=== PATIENT | female | born 1950 ===

== ENCOUNTER 2018-07-11 21:25 | Inpatient (IN) | payer BC, OTHER ==
[~2018-07-11] VITALS: Ht 170.2 cm; Wt 61.7 kg
--- NOTE | 2018-07-11 21:40 | NUR ---
Pt bib private ambulance from [facility] for medical clearance and admission to MHU. Pt on 5150 hold - Gravely Disabled. Per report, pt has been refusing meds x 3 days, has become more irritable. Pt is alert, & oriented to name & . Pt is calm & cooperative at this time. Sitter at bedside for safety measures. No acute distress noted. Pending MHU admission.
[2018-07-11 21:56] LABS: BASOPHILS # (AUTO) 0.1 K/uL (0.0-8.0); BASOPHILS % (AUTO) 0.7 % (0.0-2.0); EOSINOPHILS % (AUTO) 0.2 % (0.0-7.0); HEMOGLOBIN 13.3 g/dL (10.9-14.3); LYMPHOCYTES # (AUTO) 2.5 K/uL (20.0-40.0); LYMPHOCYTES % (AUTO) 30.5 % (20.5-51.5); MEAN CORPUSCULAR HEMOGLOBIN 30.9 uug (24.7-32.8); MEAN CORPUSCULAR HGB CONC 34 g/dL (32.3-35.6); MEAN CORPUSCULAR VOLUME 90.1 fL (75.5-95.3); MONOCYTES % (AUTO) 11.9 % (0.0-11.0); NEUTROPHILS # (AUTO) 4.6 K/uL (1.8-8.9); NEUTROPHILS % (AUTO) 56.7 % (38.5-71.5); PLATELET COUNT (AUTO) 237 K/uL (179-408); RED BLOOD CELL COUNT(AUTO) 4.32 MIL/uL (3.63-4.92); WHITE BLOOD COUNT (AUTO) 8.2 K/uL (3.8-11.8)
[2018-07-11 22:03] LABS: CARBON DIOXIDE 27 mmol/L (21-32); CHLORIDE 90 mmol/L (98-107); CREATININE 0.7 mg/dL (0.6-1.3); GLUCOSE 106 mg/dL (74-106); POTASSIUM 3.1 mmol/L (3.5-5.1); UREA NITROGEN, BLOOD 15 mg/dL (7-18)
[2018-07-11 22:10] LABS: ETHANOL < 3 MG/DL (0-0)
[2018-07-11 22:13] LABS: ALANINE AMINOTRANSFERASE 16 U/L (14-59); ALKALINE PHOSPHATASE 110 U/L (50-136); ASPARTATE AMINOTRANSFERASE 14 U/L (15-37); BILIRUBIN,DIRECT 0.4 mg/dL (0.0-0.2); BILIRUBIN,TOTAL 1.3 mg/dL (0.2-1.0); TOTAL PROTEIN, SERUM 7.2 g/dL (6.4-8.2)
[2018-07-11 22:14] LABS: ACETAMINOPHEN < 2.0 ug/mL (10-30)
[2018-07-11] MEDS ORDERED: AMLO5TAB9 PO (22:14)
[2018-07-11] MEDS ORDERED: ONDA4TAB11 PO (22:14)
[2018-07-11] MEDS ORDERED: PANT40TA4 PO (22:14)
[2018-07-11] MEDS ORDERED: METO25TA6 PO (22:14)
[2018-07-11] MEDS ORDERED: SERT25TA PO (22:14)
[2018-07-11] MEDS ORDERED: LACT10SO PO (22:14)
[2018-07-11] MEDS ORDERED: LEVE500T20 PO (22:14)
[2018-07-11] MEDS ORDERED: THIA100T88 PO (22:14)
[2018-07-11] MEDS ORDERED: IV NORMAL SALINE 1000 ML BAG IV ONE (22:15)
[2018-07-11 22:22] LABS: *BILIRUBIN,URIN NEGATIVE (NEGATIVE); *BLOOD, URINE NEGATIVE (NEGATIVE); *CLARITY,URINE CLEAR (CLEAR); *COLOR,URINE YELLOW (YELLOW); *KETONES,URINE NEGATIVE (NEGATIVE); *UROBILINOGEN,URINE 0.2 E.U./dl (NORMAL); LEUKOCYTE ESTERASE ,URINE NEGATIVE (NEGATIVE); NITRITE, URINE NEGATIVE (NEGATIVE); PH,URINE 6.5 (5.0-8.0); UGLUCOSE NEGATIVE (NEGATIVE)
[2018-07-11 22:34] LABS: MUCUS,URINE FEW /LPF (0-FEW); RBC,URINE 0-3 /HPF (0-3); SQUAMOUS EPITHELIAL CELL,UR FEW /HPF (NONE SEEN)
[2018-07-11 22:39] LABS: *AMPHETAMINE, URINE NEGATIVE (NEGATIVE); *BARBITURATE, URINE NEGATIVE (NEGATIVE); *CANNABINOID, URINE POSITIVE (NEGATIVE); *COCCAINE, URINE NEGATIVE (NEGATIVE); *OPIATE, URINE NEGATIVE (NEGATIVE); *PHENCYCLIDINE SCREEN,URINE NEGATIVE (NEGATIVE)
--- NOTE | 2018-07-11 22:50 | NUR ---
Pt is medically cleared by MAIKOL Mistry MD. Pt IV fluids infusing then admission to MHU.
--- NOTE | 2018-07-11 23:12 | NUR ---
IV removed. Catheter intact and site benign. Pressure and 4x4 gauze applied to site. No bleeding noted.
[2018-07-11] MEDS ORDERED: POTASSIUM CHLORIDE 20 MEQ TAB.PRT.SR ONE (23:22)
--- NOTE | 2018-07-11 23:28 | NUR ---
Pt. admitted to MHU , under care of Dr. Blackwood/Regan Bustos, COAL GETTER 7604 Hold GD. Belongs List completed. MRSA swab done.
[2018-07-11] MEDS ORDERED: POTASSIUM CHLORIDE 20 MEQ TAB.PRT.SR PO ONE (23:30)
[2018-07-11] MEDS ORDERED: ACETAMINOPHEN 325 MG TABLET PO PRN (23:30)
[2018-07-11] MEDS ORDERED: TEMAZEPAM 7.5 MG CAPSULE PO PRN (23:30)
[2018-07-11] MEDS ORDERED: LORAZEPAM 0.5 MG TABLET PO PRN (23:30)
[2018-07-11] MEDS ORDERED: MAG HYDROX/AL HYDROX/SIMETH 30 ML LIQUID UDC PO PRN (23:30)
[2018-07-11] MEDS ORDERED: MAGNESIUM HYDROXIDE 30 ML LIQUID UDC PO PRN (23:30)
[2018-07-11 23:40] VITALS: BP 139/75
[2018-07-12] MEDS ORDERED: ALBUTEROL SULFATE 2.5 MG/3 ML NEBU NEB PRN (01:45)
--- NOTE | 2018-07-12 03:24 | NUR ---
Admission Notes: Admitted this 73 y.o. female, brought to MHU from ER via gurney, accompanied by staff, arrived @ 2335. Pt is on a 5150 hold for Grave Disability. According to the hold, "Patient has been refusing medications, refusing care, and refusing hygiene at her facility, and was found passed out by staff in her room with 6 empty bottles of wine." Pt was placed on 5150 hold upon evaluation, and brought to [facility]. RN concurs with the hold. Advisement and patient rights handbook given. Upon face to face assessment, pt presented with appropriate affect and was joking around with staff. Pt is A/O x 3, denies SI/HI/AH/VH, but minimizing condition. Pt reports not knowing how she got to the hospital, and denies any of the information written on the hold. Pt denies any alcohol abuse, admits to drinking "here and there", and smoking marijuana. Pt denies feeling depressed or any psychiatric history. Pt seems to be forgetful at times, states that she does not know the name of the facility she lives in. Pt also denies seeing a psychiatrist, even though Intake report shows she is a patient of Dr. Blackwood, one of the psychiatrists at this hospital. Dr. Self and Dr. Sheppard have both been notified of admission, orders received. Pt safety check and search done, skin is intact with a few rashes noted, pictures have been taken and placed on chart. Pt has been educated and oriented to unit and rules. Pt respectfully declined to sign admission forms due to being sleepy, but verbalized understanding and agreement of admission. Emphasized safety, bed at lowest position with wheels locked and side rails up x 2.
[2018-07-12 07:30] VITALS: BP 136/68
[2018-07-12] MEDS: THIAMINE HCL 100 MG TABLET PO SCH ×2 (08:57→09:59)
[2018-07-12] MEDS ORDERED: Medication Not On Formulary EA (Lactulose (Duphalac) 10 GM) PO SCH (09:00)
[2018-07-12] MEDS: LACTULOSE 20 G/30 ML LIQUID UDC PO SCH (09:00)
[2018-07-12] MEDS: PANTOPRAZOLE SODIUM 40 MG TABLET.DR PO SCH (09:00)
[2018-07-12] MEDS: LEVETIRACETAM 500 MG TABLET PO SCH (09:57)
[2018-07-12] MEDS: METOPROLOL TARTRATE 25 MG TABLET PO SCH ×2 (09:57→20:29)
[2018-07-12] MEDS: AMLODIPINE 5 MG TABLET PO SCH (09:59)
--- NOTE | 2018-07-12 15:58 | NUR ---
Initial Discharge Instructions: Patient is a current resident of [facility] [[address] [place] [address]; [phone]]. Per pt, she could not remember where she lived until this junior copywriter stated it. Patient reports she would like to return there. Spoke with pt's friend, Kylie Alexa ([phone]) who is able to be involved in treatment planning. SW attempted to contact Bid Manager, Afshan, at [facility] and had to leave a message for a return call. SW will continue to follow-up. ACACIA will continue to collaborate with pt, support system, and MD regarding most appropriate discharge plans. SW will form a safe and proper discharge.
[2018-07-12 16:00] VITALS: BP 108/60
--- NOTE | 2018-07-12 16:28 | NUR ---
UR Note: ACACIA faxed daily clinicals to [facility] Title Insurance Agent, Tri [ph. [phone]; fax [phone]]. Awaiting further authorization. ACACIA will continue to follow-up.
[2018-07-12 20:05] VITALS: BP 115/69
[2018-07-12] MEDS: DIVALPROEX 250 MG TABLET.DR PO SCH (20:28)
[2018-07-12] MEDS: CLOTRIMAZOLE/BETAMET DIPROP CREAM 15 GM TUBE TOP SCH (20:28)
[2018-07-12] MEDS: SERTRALINE HCL 50 MG TABLET PO SCH (20:29)
--- NOTE | 2018-07-12 20:48 | NUR ---
Received pt resting and watching TV in the dining area. AAO x2. No acute distress noted. Denies pain or discomfort. Denies S/I. Ambulatory. Meds given as ordered. Pt needs prompting when taking meds. Safety measures maintained. Will continue to monitor.
[2018-07-13] MEDS: PANTOPRAZOLE SODIUM 40 MG TABLET.DR PO SCH (06:07)
[2018-07-13 07:05] LABS: BASOPHILS % (AUTO) 0.6 % (0.0-2.0); EOSINOPHILS % (AUTO) 0.3 % (0.0-7.0); HEMATOCRIT 38.9 % (31.2-41.9); HEMOGLOBIN 13.2 g/dL (10.9-14.3); LYMPHOCYTES % (AUTO) 32.1 % (20.5-51.5); MEAN CORPUSCULAR HEMOGLOBIN 30.8 uug (24.7-32.8); MEAN CORPUSCULAR HGB CONC 34 g/dL (32.3-35.6); MEAN CORPUSCULAR VOLUME 90.7 fL (75.5-95.3); MONOCYTES # (AUTO) 0.8 K/uL (2.0-10.0); MONOCYTES % (AUTO) 12.1 % (0.0-11.0); NEUTROPHILS # (AUTO) 3.5 K/uL (1.8-8.9); NEUTROPHILS % (AUTO) 54.9 % (38.5-71.5); PLATELET COUNT (AUTO) 200 K/uL (179-408); RED BLOOD CELL COUNT(AUTO) 4.29 MIL/uL (3.63-4.92); WHITE BLOOD COUNT (AUTO) 6.4 K/uL (3.8-11.8)
[2018-07-13 07:12] LABS: CREATININE 0.5 mg/dL (0.6-1.3); MAGNESIUM 1.6 mg/dL (1.8-2.4); PHOSPHOROUS 3.5 mg/dL (2.5-4.9); POTASSIUM 3.4 mmol/L (3.5-5.1)
[2018-07-13 07:30] VITALS: BP 123/68
[2018-07-13] MEDS: LEVETIRACETAM 500 MG TABLET PO SCH (08:39)
[2018-07-13] MEDS: THIAMINE HCL 100 MG TABLET PO SCH ×2 (08:39→16:07)
[2018-07-13] MEDS: DIVALPROEX 250 MG TABLET.DR PO SCH ×2 (08:39→20:01)
[2018-07-13] MEDS: METOPROLOL TARTRATE 25 MG TABLET PO SCH ×2 (08:39→20:02)
[2018-07-13] MEDS: LACTULOSE 20 G/30 ML LIQUID UDC PO SCH (08:40)
[2018-07-13] MEDS: CLOTRIMAZOLE/BETAMET DIPROP CREAM 15 GM TUBE TOP SCH ×2 (08:40→20:02)
[2018-07-13] MEDS: AMLODIPINE 5 MG TABLET PO SCH (08:40)
--- NOTE | 2018-07-13 11:01 | NUR ---
UR Note: ACACIA faxed daily clinicals to [facility] Adult Neurologist, Tri [ph. [phone]; fax [phone]]. Awaiting further authorization. ACACIA will continue to follow-up.
[2018-07-13] MEDS ORDERED: MAGNESIUM OXIDE 400 MG TABLET PO ONE (14:45)
[2018-07-13] MEDS ORDERED: POTASSIUM CHLORIDE 20 MEQ TAB.PRT.SR PO ONE (14:45)
[2018-07-13 15:00] VITALS: BP 130/72
--- NOTE | 2018-07-13 16:49 | NUR ---
SCREAMING AND YELLING AT STAFF BECAUSE SHE CANNOT CLOSE HER DOOR TO HER ROOM. DISRESPECTFUL AND VERBALLY ABUSIVE TO THE NURSES
[2018-07-13] MEDS: SERTRALINE HCL 50 MG TABLET PO SCH (20:01)
[2018-07-13 20:11] VITALS: BP 125/72
[2018-07-14] MEDS: PANTOPRAZOLE SODIUM 40 MG TABLET.DR PO SCH (06:11)
--- NOTE | 2018-07-14 06:53 | NUR ---
GPS: Remain calm and cooperative with medications and care. slept 7 hrs through the night. resting in bed comfortably. no agitation noted. continue plan of care.
[2018-07-14 07:30] VITALS: BP 133/70
[2018-07-14 08:00] VITALS: BP 106/65
[2018-07-14] MEDS: THIAMINE HCL 100 MG TABLET PO SCH ×2 (08:56→16:55)
[2018-07-14] MEDS: DIVALPROEX 250 MG TABLET.DR PO SCH ×2 (08:56→20:04)
[2018-07-14] MEDS: LEVETIRACETAM 500 MG TABLET PO SCH (08:56)
[2018-07-14] MEDS: LACTULOSE 20 G/30 ML LIQUID UDC PO SCH (08:56)
[2018-07-14] MEDS: AMLODIPINE 5 MG TABLET PO SCH (08:57)
[2018-07-14] MEDS: METOPROLOL TARTRATE 25 MG TABLET PO SCH ×2 (08:57→20:11)
[2018-07-14] MEDS: CLOTRIMAZOLE/BETAMET DIPROP CREAM 15 GM TUBE TOP SCH ×2 (08:57→20:13)
[2018-07-14 16:37] VITALS: BP 102/50
[2018-07-14 20:00] VITALS: BP 106/65
[2018-07-14] MEDS: SERTRALINE HCL 50 MG TABLET PO SCH (20:04)
[2018-07-15] MEDS: PANTOPRAZOLE SODIUM 40 MG TABLET.DR PO SCH (06:04)
--- NOTE | 2018-07-15 06:12 | NUR ---
GPS: Remain calm and cooperative with medication and care. no agressive behavior noted at this time resting in bed comfortably. slept 7:30 hrs through the night. continue plan of care.
[2018-07-15 07:30] VITALS: BP 132/73
[2018-07-15] MEDS: DIVALPROEX 250 MG TABLET.DR PO SCH ×2 (08:43→20:09)
[2018-07-15] MEDS: LEVETIRACETAM 500 MG TABLET PO SCH (08:43)
[2018-07-15] MEDS: THIAMINE HCL 100 MG TABLET PO SCH ×2 (08:44→16:55)
[2018-07-15] MEDS: METOPROLOL TARTRATE 25 MG TABLET PO SCH ×2 (08:44→20:09)
[2018-07-15] MEDS: AMLODIPINE 5 MG TABLET PO SCH (08:44)
[2018-07-15] MEDS: LACTULOSE 20 G/30 ML LIQUID UDC PO SCH (08:44)
[2018-07-15] MEDS: CLOTRIMAZOLE/BETAMET DIPROP CREAM 15 GM TUBE TOP SCH ×2 (08:45→20:10)
[2018-07-15 16:28] VITALS: BP 95/59
[2018-07-15 19:59] VITALS: BP 103/63
[2018-07-15] MEDS: SERTRALINE HCL 50 MG TABLET PO SCH (20:09)
[2018-07-16] MEDS: PANTOPRAZOLE SODIUM 40 MG TABLET.DR PO SCH (06:02)
--- NOTE | 2018-07-16 06:22 | NUR ---
PT SLEPT 7.30 HOURS. PT SHOWS NO ACUTE DISTRESS. PRESCRIBED MEDICATION GIVEN AND PT TOLERATED IT WELL. PT CALM AND COOPERATIVE WITH CARE. SAFETY AND COMFORT PROVIDED. ALL NEEDS ARE MET. WILL ENDORSE ACCORDINGLY TO INCOMING NURSE FOR CONTINUITY OF CARE.
[2018-07-16 07:11] LABS: BASOPHILS % (AUTO) 0.6 % (0.0-2.0); EOSINOPHILS % (AUTO) 0.4 % (0.0-7.0); HEMATOCRIT 38.3 % (31.2-41.9); LYMPHOCYTES # (AUTO) 1.7 K/uL (20.0-40.0); LYMPHOCYTES % (AUTO) 37.4 % (20.5-51.5); MEAN CORPUSCULAR HEMOGLOBIN 30.8 uug (24.7-32.8); MEAN CORPUSCULAR HGB CONC 34 g/dL (32.3-35.6); MEAN CORPUSCULAR VOLUME 90.7 fL (75.5-95.3); MONOCYTES # (AUTO) 0.6 K/uL (2.0-10.0); MONOCYTES % (AUTO) 14.2 % (0.0-11.0); NEUTROPHILS # (AUTO) 2.1 K/uL (1.8-8.9); NEUTROPHILS % (AUTO) 47.4 % (38.5-71.5); PLATELET COUNT (AUTO) 216 K/uL (179-408); RED BLOOD CELL COUNT(AUTO) 4.22 MIL/uL (3.63-4.92); WHITE BLOOD COUNT (AUTO) 4.5 K/uL (3.8-11.8)
[2018-07-16 07:30] VITALS: BP 128/69
[2018-07-16 07:30] LABS: CREATININE 0.5 mg/dL (0.6-1.3); MAGNESIUM 1.9 mg/dL (1.8-2.4); PHOSPHOROUS 3.2 mg/dL (2.5-4.9); POTASSIUM 3.8 mmol/L (3.5-5.1)
[2018-07-16] MEDS: THIAMINE HCL 100 MG TABLET PO SCH ×2 (08:27→17:25)
[2018-07-16] MEDS: DIVALPROEX 250 MG TABLET.DR PO SCH ×2 (08:27→20:14)
[2018-07-16] MEDS: LACTULOSE 20 G/30 ML LIQUID UDC PO SCH (08:27)
[2018-07-16] MEDS: AMLODIPINE 5 MG TABLET PO SCH (08:27)
[2018-07-16] MEDS: LEVETIRACETAM 500 MG TABLET PO SCH (08:28)
[2018-07-16] MEDS: CLOTRIMAZOLE/BETAMET DIPROP CREAM 15 GM TUBE TOP SCH ×2 (08:28→20:15)
[2018-07-16] MEDS: METOPROLOL TARTRATE 25 MG TABLET PO SCH ×2 (08:28→20:10)
--- NOTE | 2018-07-16 10:41 | NUR ---
Steel Heater Discharge Planning: ACACIA called and spoke to Afshan, Window Installer at [facility] ([phone]). Per Afshan, they require an order from the MD to transfer patient to memory care unit. ACACIA consulted with Dr. Self and obtained order. ACACIA faxed order to Afshan (f. [phone]). Afshan stated they will be ready to accept the patient tomorrow (07/17/18) in 's new Memory Care room. ACACIA will continue to follow-up.
--- NOTE | 2018-07-16 11:01 | NUR ---
UR Note: ACACIA faxed daily clinicals to [facility] Taxicab Driver, Tri [ph. [phone]; fax [phone]]. ACACIA also placed call to Tri to update her on DC plan. Taxicab Driver, Koko is covering for Tri today (07/16/18). ACACIA informed Koko of DC plan to DC pt to [facility] tomorrow (07/17/18). ACACIA also informed Koko that Dr. Self would like to follow the patient at the facility. Per Koko, he will contact [facility] Coordinator to alert them. Koko reports he will look at the daily clinicals and call this technical writer and editor back. Awaiting further authorization. ACACIA will continue to follow-up.
[2018-07-16 15:28] VITALS: BP 95/65
[2018-07-16 19:46] VITALS: BP 103/67
[2018-07-16] MEDS: SERTRALINE HCL 50 MG TABLET PO SCH (20:14)
[2018-07-17] MEDS: PANTOPRAZOLE SODIUM 40 MG TABLET.DR PO SCH (06:25)
[2018-07-17 07:30] VITALS: BP 110/61
[2018-07-17] MEDS: THIAMINE HCL 100 MG TABLET PO SCH (08:36)
[2018-07-17 08:37] VITALS: BP 110/61
[2018-07-17] MEDS: METOPROLOL TARTRATE 25 MG TABLET PO SCH (08:37)
[2018-07-17] MEDS: LACTULOSE 20 G/30 ML LIQUID UDC PO SCH (08:37)
[2018-07-17] MEDS: LEVETIRACETAM 500 MG TABLET PO SCH (08:37)
[2018-07-17] MEDS: AMLODIPINE 5 MG TABLET PO SCH (08:37)
[2018-07-17] MEDS: DIVALPROEX 250 MG TABLET.DR PO SCH (08:37)
[2018-07-17] MEDS: CLOTRIMAZOLE/BETAMET DIPROP CREAM 15 GM TUBE TOP SCH (08:38)
--- NOTE | 2018-07-17 11:50 | NUR ---
DC Note: Patient will be discharged back to her Assisted Living Facility: [facility] [Address: [address], [place] [address]; ] via ambulance. Please arrange an ambulance for this patient. Spoke with Afshan, Refinery Superintendent, at the facility ([phone]) who states they are ready to accept the patient today. Patient is alert and oriented x2 and is cooperative. Patient will continue to follow-up with her Primary Care Physician, Dr. Brett Godinez [[address], [address] [place] [address]; [phone]]. Patient will also continue to follow-up with Psychiatrist, Dr. Cliff Self [Address: [address] [place] [address]; ] and has an appointment with him on July @ 5pm. Patient was provided with a brief substance abuse intervention and referred to [facility] , [facility] , and [facility] . Patient was also provided with outpatient mental health referrals to [facility] , [facility] , and the National Suicide Prevention Lifeline . Addendum: 07/17/18 at 1206 by MALIK CORTES SW spoke with [facility] Aftercare Coordinator, Duglas (ph. [phone]) who states he will schedule an appointment with pt's PCP, Dr. Godinez and will call this clinical writer back once it is scheduled.
--- NOTE | 2018-07-17 12:09 | NUR ---
UR Note: ACACIA faxed discharge clinicals to [facility] Swatch Paster, Tri [ph. [phone]; fax [phone]]. ACACIA requested AUTH#. Awaiting response. ACACIA will continue to follow-up.
--- NOTE | 2018-07-17 12:11 | NUR ---
Firearms Report: ACACIA completed and submitted [employer] firearms report for 5250 GD certification.
--- NOTE | 2018-07-17 15:15 | NUR ---
GPS: Nursing Notes: Discharge Notes: Patient is awake and responding to her name, cooperative with nursing care, compliant with her medications, following staff directions, denies any SI/HI, denies any AH/VH, denies any pain or discomfort, denies any SOB, discharge to [facility] at [address], [place] [address] . report given to Jhoana - front office associate, took all her belongings with her, transported via ambulance. Patient will continue to follow-up with her Primary Care Physician, Dr. Brett Godinez [[address], [address] [place] [address]; [phone]]. Patient will also continue to follow-up with Psychiatrist, Dr. Cliff Self [Address: [address] [place] [id number]; ] and has an appointment with him on , July 19, 2018 @ 5pm. Patient was provided with a brief substance abuse intervention and referred to [facility] , [facility] , and [facility] . Patient was also provided with outpatient mental health referrals to [facility] , [facility] , and the National Suicide Prevention Lifeline .
== END 2018-07-17 15:15 | DRG 885 ==
LOC: ER 21:28 → GPS 23:16
PROVIDERS: ADMIT Psychiatry & Neurology Psychiatry; ATTEND Nurse Practitioner Acute Care
DX: F39 Unspecified mood [affective] disorder (principal); E87.1 Hypo-osmolality and hyponatremia; K21.9 Gastro-esophageal reflux disease without esophagitis; G40.909 Epilepsy, unspecified, not intractable, without status epilepticus; Z79.899 Other long term (current) drug therapy; I11.9 Hypertensive heart disease without heart failure; E87.6 Hypokalemia; E83.42 Hypomagnesemia; F29 Unspecified psychosis not due to a substance or known physiological condition; F10.20 Alcohol dependence, uncomplicated; Y90.0 Blood alcohol level of less than 20 mg/100 ml; F03.90 Unspecified dementia, unspecified severity, without behavioral disturbance, psychotic disturbance, mood disturbance, and anxiety; E86.1 Hypovolemia; Z86.59 Personal history of other mental and behavioral disorders
CPT/HCPCS: 36415; 71045; 80307; 83735; 84100; 85025; 93005; A4663; G0480; G0480-TC; J3490; J7030